=== PATIENT | female | born 1940 | race Caucasian/White ===

== ENCOUNTER 2022-01-12 16:36 | Inpatient (IN) ==
[2022-01-12] MEDS ORDERED: cefTRIAXone 2,000 MG in 0.9 % Sodium Chloride 20 ML IVP ONE (17:07)
[2022-01-12] MEDS ORDERED: Isovue-370 500 ML BOTTLE IVP ONE (17:09)
[2022-01-12 17:27] LABS: Basophils % 0.5 %; Hematocrit 41.6 % (35.3-44.9); Hemoglobin 13.7 g/dL (11.5-15.4); Immature Granulocytes % 0.7 % (0-4); Lymphocytes # 0.5 K/mcL (0.6-4.6); Mean Corpuscular HGB Conc 32.9 g/dL (31.6-35.5); Mean Corpuscular Hemoglobin 28.3 pg (28.0-33.3); Mean Platelet Volume 10.1 fL (9.4-12.4); Monocytes # 0.3 K/mcL (0.0-1.3); Monocytes % 6.1 %; Neutrophils # 3.6 K/mcL (1.6-8.9); Platelet Count 111 K/mcL (140-400); Red Blood Count 4.84 M/mcL (3.82-4.97); Red Cell Distribution Width 13.1 % (11.5-14.5); Segmented Neutrophils % 80.7 %; White Blood Count 4.4 K/mcL (4.3-11.1)
[2022-01-12 17:35] LABS: INR 1.2; Prothrombin Time 13.7 Seconds (9.4-12.1)
[2022-01-12 17:46] LABS: Alanine Aminotransferase 35 Units/L (7-52); Albumin 4.6 g/dL (3.5-5.7); Albumin/Globulin Ratio 1.4 (1.1-2.2); Alkaline Phosphatase 119 Units/L (34-104); Aspartate Amino Transferase 105 Units/L (13-39); BUN/Creatinine Ratio 31 (6-26); Bilirubin,Direct 0.2 mg/dL (0.0-0.2); Bilirubin,Indirect 0.6 mg/dL (0.0-1.0); Bilirubin,Total 0.8 mg/dL (0.3-1.0); Blood Urea Nitrogen 35 mg/dL (8-23); Carbon Dioxide 25 mEq/L (23-29); Chloride 95 mEq/L (98-107); Globulin 3.4 g/dL (2.4-3.5); Glucose 108 mg/dL (70-105); Lipase 46 Units/L (11-82); Magnesium 1.6 mg/dL (1.6-2.6); Osmolality,Calculated 281 (280-300); Phosphorous 2.3 mg/dL (2.7-4.5); Potassium 3.8 mEq/L (3.5-5.1); Sodium 131 mEq/L (136-145); Troponin I < 0.03 ng/mL (< 0.04); eGFR For African Americans 57 (> 60); eGFR For Non-African Americans 47 (> 60)
[2022-01-12] MEDS: Ringers Solution, Lactated 1,000 ML IVC SCH ×2 (17:53→20:04)
[2022-01-12 19:25] LABS: Bacteria,Urine Few per hpf (None-Few); Bilirubin,Urine Negative (Negative); Blood,Urine Small (Negative); Clarity,Urine Clear (Clear); Color,Urine Light-Yellow (Yellow); Glucose,Urine (UA) Normal (Normal); Ketones,Urine Negative (Negative); Leukocyte Esterase,Urine Negative (Negative); Mucus,Urine Few per lpf (None-Few); Nitrite,Urine Negative (Negative); PH,Urine 6.5 pH Units (5.0-8.0); Protein,Urine 100 mg/dL (Neg-Trace); Specific Gravity,Urine > 1.030 (1.010-1.025); Squamous Epithelial Cell,Urine Moderate per hpf (None-Few); Urobilinogen,Urine Normal (Normal)
[2022-01-12] MEDS ORDERED: MetroNIDAZOLE 500 MG/100 ML 500 MG/100 ML BAG IVPB ONE (19:33)
[2022-01-12] MEDS ORDERED: Ondansetron 4 MG/2 ML VIAL IVP PRN (21:08)
[2022-01-12] MEDS ORDERED: Naloxone 0.4 MG/ML INJ IVP PRN (21:08)
[2022-01-12] MEDS ORDERED: Ringers Solution, Lactated 1,000 ML IVC SCH (21:15)
[2022-01-12] MEDS ORDERED: Isovue-370 500 ML BOTTLE PO ONE (21:50)
[2022-01-12] MEDS ORDERED: Dextrose 4 GM Chewable Tablets PO PRN ×2 (23:00)
[2022-01-12] MEDS ORDERED: *HR* Dextrose 50 % in Water (Syg) 50 ML SYRINGE IVP PRN (23:00)
[2022-01-12] MEDS ORDERED: D5% in Water 1,000 ML IVC PRN (23:00)
[2022-01-12] MEDS ORDERED: cefTRIAXone 1,000 MG in 0.9 % Sodium Chloride Mini Bag 100 ML IVPB SCH (23:00)
[2022-01-13 00:09] LABS: C-Reactive Protein 137 mg/L (Less than 10)
[2022-01-13 01:12] LABS: White Blood Count 3.4 K/mcL (4.3-11.1)
[2022-01-13 01:14] LABS: Basophils % 0.6 %; Hematocrit 34.5 % (35.3-44.9); Hemoglobin 11.6 g/dL (11.5-15.4); Immature Granulocytes % 0.3 % (0-4); Immature Platelets 5.1 % (1.1-6.1); Lymphocytes # 0.6 K/mcL (0.6-4.6); Lymphocytes % 16.7 %; Mean Corpuscular HGB Conc 33.6 g/dL (31.6-35.5); Mean Corpuscular Hemoglobin 28.9 pg (28.0-33.3); Mean Corpuscular Volume 85.8 fL (83.0-100.0); Mean Platelet Volume 10.8 fL (9.4-12.4); Monocytes # 0.3 K/mcL (0.0-1.3); Monocytes % 9.1 %; Neutrophils # 2.5 K/mcL (1.6-8.9); Platelet Count 92 K/mcL (140-400); Red Blood Count 4.02 M/mcL (3.82-4.97); Red Cell Distribution Width 12.8 % (11.5-14.5); Segmented Neutrophils % 73.3 %
[2022-01-13 01:28] LABS: BUN/Creatinine Ratio 31 (6-26); Blood Urea Nitrogen 27 mg/dL (8-23); Calcium 8.3 mg/dL (8.6-10.3); Carbon Dioxide 25 mEq/L (23-29); Chloride 98 mEq/L (98-107); Glucose 91 mg/dL (70-105); Osmolality,Calculated 277 (280-300); Potassium 3.4 mEq/L (3.5-5.1); Sodium 131 mEq/L (136-145); eGFR For African Americans > 60 (> 60); eGFR For Non-African Americans > 60 (> 60)
[2022-01-13] MEDS ORDERED: MetroNIDAZOLE 500 MG/100 ML 500 MG/100 ML BAG IVPB SCH (04:00)
[2022-01-13] MEDS ORDERED: cefTRIAXone 2,000 MG in 0.9 % Sodium Chloride Mini Bag 100 ML IVPB SCH (06:00)
[2022-01-13] MEDS: *HR* Heparin 5,000 UNIT/ML VIAL SQ SCH ×3 (06:14→22:14)
[2022-01-13] MEDS: 0.9 % Sodium Chloride 1,000 ML IVC SCH ×2 (06:24→15:38)
[2022-01-13 07:19] LABS: Adenovirus Not Detected (Not Detect); Bordetella Pertussis Not Detected (Not Detect); Chlamydophila pneumoniae Not Detected (Not Detect); Coronavirus 229E Not Detected (Not Detect); Coronavirus HKU1 Not Detected (Not Detect); Coronavirus NL63 Not Detected (Not Detect); Coronavirus OC43 Not Detected (Not Detect); Human Metapneumovirus Not Detected (Not Detect); Human Rhinovirus/Enterovirus Not Detected (Not Detect); Influenza A Subtype 2009 H1 Not Detected (Not Detect); Influenza B Not Detected (Not Detect); Mycoplasma pneumoniae Not Detected (Not Detect); Parainfluenza Virus 1 Not Detected (Not Detect); Parainfluenza Virus 2 Not Detected (Not Detect); Parainfluenza Virus 3 Not Detected (Not Detect); Parainfluenza Virus 4 Not Detected (Not Detect); Respiratory Syncytial Virus Not Detected (Not Detect)
[2022-01-13 07:20] LABS: SARS-CoV-2 DETECTED (Not Detect)
[2022-01-13] MEDS ORDERED: Ampicillin 2,000 MG in 0.9 % Sodium Chloride Mini Bag 100 ML IVPB SCH (08:00)
[2022-01-13] MEDS ORDERED: LEFLUNOMIDE 20 MG PO SCH (09:00)
[2022-01-13] MEDS ORDERED: Methyl Salicylate/Menthol 85 APPL/85 GM TUBE TP PRN (09:22)
[2022-01-13] MEDS: Gabapentin 400 MG CAPSULE PO SCH ×4 (09:23→22:14)
[2022-01-13] MEDS: Cholecalciferol (D-3) 1,000 UNIT (25MCG) TABLET PO SCH (09:23)
[2022-01-13] MEDS: Aspirin 81 MG TAB.CHEW PO SCH (09:23)
[2022-01-13] MEDS: Insulin LISPRO 300 UNITS/3 ML VIAL SUBQ SCH ×3 (09:44→16:51)
[2022-01-13] MEDS: Clotrimazole 1% CRM 15 GM TUBE TP SCH ×2 (12:03→22:14)
[2022-01-14 02:01] LABS: Hemoglobin 11.5 g/dL (11.5-15.4); Mean Platelet Volume 11.3 fL (9.4-12.4)
[2022-01-14 02:03] LABS: Hematocrit 34.5 % (35.3-44.9); Immature Platelets 6.6 % (1.1-6.1); Mean Corpuscular HGB Conc 33.3 g/dL (31.6-35.5); Mean Corpuscular Hemoglobin 28.9 pg (28.0-33.3); Mean Corpuscular Volume 86.7 fL (83.0-100.0); Red Blood Count 3.98 M/mcL (3.82-4.97); Red Cell Distribution Width 12.7 % (11.5-14.5)
[2022-01-14 02:11] LABS: BUN/Creatinine Ratio 24 (6-26); Blood Urea Nitrogen 17 mg/dL (8-23); Calcium 8.1 mg/dL (8.6-10.3); Carbon Dioxide 24 mEq/L (23-29); Chloride 102 mEq/L (98-107); Glucose 100 mg/dL (70-105); Osmolality,Calculated 280 (280-300); Potassium 3.2 mEq/L (3.5-5.1); Sodium 134 mEq/L (136-145); eGFR For African Americans > 60 (> 60); eGFR For Non-African Americans > 60 (> 60)
[2022-01-14] MEDS: 0.9 % Sodium Chloride 1,000 ML IVC SCH ×4 (02:19→23:16)
[2022-01-14 02:20] LABS: Platelet Count 86 K/mcL (140-400)
[2022-01-14 03:18] LABS: Eosinophils # 0.1 K/mcL (0.0-0.6); Lymphocytes # 0.9 K/mcL (0.6-4.6); Monocytes # 0.2 K/mcL (0.0-1.3); Neutrophils # 1.9 K/mcL (1.6-8.9); Platelet Estimate Decreased (Normal)
[2022-01-14] MEDS ORDERED: cefTRIAXone 1,000 MG in 0.9 % Sodium Chloride 10 ML IVP SCH (06:00)
[2022-01-14] MEDS: *HR* Heparin 5,000 UNIT/ML VIAL SQ SCH ×3 (06:04→20:18)
[2022-01-14] MEDS: Insulin LISPRO 300 UNITS/3 ML VIAL SUBQ SCH ×3 (08:21→16:15)
[2022-01-14] MEDS: Gabapentin 400 MG CAPSULE PO SCH ×4 (08:49→20:18)
[2022-01-14] MEDS: Aspirin 81 MG TAB.CHEW PO SCH (08:49)
[2022-01-14] MEDS: Multivit/Ca/Min/Fe/FA 1 TAB TABLET PO SCH (08:49)
[2022-01-14] MEDS: Cholecalciferol (D-3) 1,000 UNIT (25MCG) TABLET PO SCH (08:50)
[2022-01-14] MEDS: Clotrimazole 1% CRM 15 GM TUBE TP SCH ×2 (08:53→20:19)
[2022-01-15] MEDS: *HR* Heparin 5,000 UNIT/ML VIAL SQ SCH (05:33)
[2022-01-15 05:55] LABS: Immature Granulocytes % 0.3 % (0-4); Mean Corpuscular Hemoglobin 28.2 pg (28.0-33.3); Red Cell Distribution Width 12.6 % (11.5-14.5)
[2022-01-15 05:57] LABS: Basophils % 0.6 %; Eosinophils # 0.1 K/mcL (0.0-0.6); Eosinophils % 1.9 %; Hematocrit 32.1 % (35.3-44.9); Hemoglobin 10.6 g/dL (11.5-15.4); Immature Platelets 5.8 % (1.1-6.1); Lymphocytes # 0.7 K/mcL (0.6-4.6); Lymphocytes % 22.4 %; Mean Corpuscular Volume 85.4 fL (83.0-100.0); Mean Platelet Volume 11.1 fL (9.4-12.4); Monocytes # 0.3 K/mcL (0.0-1.3); Neutrophils # 2.1 K/mcL (1.6-8.9); Red Blood Count 3.76 M/mcL (3.82-4.97); Segmented Neutrophils % 65.8 %; White Blood Count 3.2 K/mcL (4.3-11.1)
[2022-01-15 05:58] LABS: Platelet Count 89 K/mcL (140-400); Platelet Estimate Decreased (Normal); Reactive Lymphocytes Present (Not Present)
[2022-01-15 06:19] LABS: BUN/Creatinine Ratio 19 (6-26); Blood Urea Nitrogen 11 mg/dL (8-23); Calcium 8.2 mg/dL (8.6-10.3); Carbon Dioxide 21 mEq/L (23-29); Chloride 106 mEq/L (98-107); Glucose 110 mg/dL (70-105); Osmolality,Calculated 280 (280-300); Potassium 3.3 mEq/L (3.5-5.1); Sodium 135 mEq/L (136-145); eGFR For African Americans > 60 (> 60); eGFR For Non-African Americans > 60 (> 60)
[2022-01-15] MEDS: Cholecalciferol (D-3) 1,000 UNIT (25MCG) TABLET PO SCH (08:30)
[2022-01-15] MEDS: Aspirin 81 MG TAB.CHEW PO SCH (08:30)
[2022-01-15] MEDS: Multivit/Ca/Min/Fe/FA 1 TAB TABLET PO SCH (08:30)
[2022-01-15] MEDS: Gabapentin 400 MG CAPSULE PO SCH (08:30)
[2022-01-15] MEDS: Clotrimazole 1% CRM 15 GM TUBE TP SCH (08:31)
[2022-01-15] MEDS: Insulin LISPRO 300 UNITS/3 ML VIAL SUBQ SCH (08:36)
[2022-01-15] MEDS: 0.9 % Sodium Chloride 1,000 ML IVC SCH (09:42)
[2022-01-15 11:21] VITALS: BP 151/77; PULSE 90; TEMP 97.7; O2SAT 93
== END 2022-01-15 15:06 | disposition home or self-care (01) | DRG 177 ==
LOC: EMEROOARM 16:36 → 3ANU 16:36 → SUATTDRO 21:20 → 3ANU 22:02
PROVIDERS: ADMIT Student in an Organized Health Care Education/Training Program; ATTEND Family Medicine